=== PATIENT | male | born 1970 | race Caucasian/White ===

== ENCOUNTER 2019-05-28 23:24 | Emergency (ER) | payer OTHER ==
[~2019-05-28] VITALS: Ht 175.3 cm; Wt 86.2 kg
--- NOTE | 2019-05-28 23:51 | NUR ---
MD AT BEDSIDE FOR HX AND PHYSICAL
--- NOTE | 2019-05-29 | NUR ---
Patient discharged to home in stable conditon. Written and verbal after care instructions given. Patient verbalizes understanding of instructions. AMBULATORY W/ STABLE GAIT
[2019-05-29 00:01] VITALS: BP 131/80
== END 2019-05-29 00:02 | disposition home or self-care (01) ==
LOC: ER 23:26
DX: F41.8 Other specified anxiety disorders (principal); Z76.0 Encounter for issue of repeat prescription
CPT/HCPCS: A4663